=== PATIENT | female | born 1995 | race Two or more races ===

== ENCOUNTER 2018-10-31 00:43 | Observation (INO) | payer MEDICAID ==
[~2018-10-31] VITALS: Ht 160 cm; Wt 77.1 kg
[2018-10-31 01:40] LABS: Urine Bacteria MOD /hpf (None Seen); Urine Blood Negative /uL (Negative); Urine Mucus FEW (None Seen); Urine Specific Gravity 1.025 (1.001-1.035); Urine WBC 49 /hpf (0 - 5)
[2018-10-31 01:42] LABS: Alcohol, Urine < 3.0 mg/dL (0-5); Amphetamine Screen, Urine NEGATIVE (NEGATIVE); Barbiturate Scree,Urine NEGATIVE (NEGATIVE); Benzodiazephine Screen, Urine NEGATIVE (NEGATIVE); Cannabinoid Screen, Urine POSITIVE (NEGATIVE); Cocaine Screen, Urine NEGATIVE (NEGATIVE); Opiate Scree,Urine NEGATIVE (NEGATIVE); Phencyclidine Screen, Urine NEGATIVE (NEGATIVE)
[2018-10-31] MEDS ORDERED: PREN-153 OR (02:08)
== END 2018-10-31 01:37 | disposition home or self-care (01) | DRG 566 ==
LOC: LDRP 00:43
PROVIDERS: ADMIT Specialist; ATTEND Specialist
DX: O26.853 Spotting complicating pregnancy, third trimester (principal); Z3A.38 38 weeks gestation of pregnancy; Z87.891 Personal history of nicotine dependence
CPT/HCPCS: 59025; 80307; 81001; 81002; 87081; G0378

== ENCOUNTER 2018-11-09 00:17 | Observation (INO) | payer MEDICAID ==
[~2018-11-09 00:17] MED LIST: PREN-153 OR
== END 2018-11-09 01:10 | disposition home or self-care (01) | DRG 566 ==
LOC: LDRP 00:17
PROVIDERS: ADMIT Specialist; ATTEND Specialist
DX: O26.853 Spotting complicating pregnancy, third trimester (principal); Z3A.39 39 weeks gestation of pregnancy
CPT/HCPCS: 59025; 81002; G0378

== ENCOUNTER 2018-11-09 03:02 | Observation (INO) | payer MEDICAID ==
[2018-11-09 04:30] LABS: Urine Bacteria FEW /hpf (None Seen); Urine Blood 3+ /uL (Negative); Urine Specific Gravity 1.004 (1.001-1.035); Urine WBC 10 /hpf (0 - 5)
[2018-11-09 05:17] LABS: Alcohol, Urine < 3.0 mg/dL (0-5); Amphetamine Screen, Urine NEGATIVE (NEGATIVE); Barbiturate Scree,Urine NEGATIVE (NEGATIVE); Benzodiazephine Screen, Urine NEGATIVE (NEGATIVE); Cannabinoid Screen, Urine NEGATIVE (NEGATIVE); Cocaine Screen, Urine NEGATIVE (NEGATIVE); Opiate Scree,Urine NEGATIVE (NEGATIVE); Phencyclidine Screen, Urine NEGATIVE (NEGATIVE)
== END 2018-11-09 07:52 | disposition home or self-care (01) | DRG 566 ==
LOC: LDRP 03:02
PROVIDERS: ADMIT Specialist; ATTEND Specialist
DX: O26.853 Spotting complicating pregnancy, third trimester (principal); O26.893 Other specified pregnancy related conditions, third trimester; M54.9 Dorsalgia, unspecified; R10.9 Unspecified abdominal pain; O99.89 Other specified diseases and conditions complicating pregnancy, childbirth and the puerperium; Z3A.39 39 weeks gestation of pregnancy
CPT/HCPCS: 59025; 76815; 80307; 81001; 81002; G0378; 96365; 96366

== ENCOUNTER 2018-11-13 09:00 | Observation (INO) | payer MEDICAID ==
[~2018-11-13] VITALS: Ht 160 cm; Wt 81.6 kg
[2018-11-13 11:00] LABS: Alcohol, Urine < 3.0 mg/dL (0-5); Amphetamine Screen, Urine NEGATIVE (NEGATIVE); Barbiturate Scree,Urine NEGATIVE (NEGATIVE); Benzodiazephine Screen, Urine NEGATIVE (NEGATIVE); Cannabinoid Screen, Urine NEGATIVE (NEGATIVE); Cocaine Screen, Urine NEGATIVE (NEGATIVE); Opiate Scree,Urine NEGATIVE (NEGATIVE); Phencyclidine Screen, Urine NEGATIVE (NEGATIVE)
== END 2018-11-13 11:00 | disposition home or self-care (01) | DRG 566 ==
LOC: LDRP 09:00
PROVIDERS: ADMIT Specialist; ATTEND Specialist
DX: O48.0 Post-term pregnancy (principal); O26.893 Other specified pregnancy related conditions, third trimester; N89.8 Other specified noninflammatory disorders of vagina; Z3A.40 40 weeks gestation of pregnancy; Z87.891 Personal history of nicotine dependence
CPT/HCPCS: 59025; 76818; 80307; 81002; G0378

== ENCOUNTER 2018-11-15 10:13 | Observation (INO) | payer MEDICAID ==
[2018-11-16] MEDS ORDERED: FERR1TAB36 PO (19:05)
[2018-11-16] MEDS ORDERED: PYRI100T51 PO (19:05)
== END 2018-11-15 14:50 | disposition home or self-care (01) | DRG 566 ==
LOC: LDRP 10:13
PROVIDERS: ADMIT Specialist; ATTEND Specialist
DX: O48.0 Post-term pregnancy (principal); Z3A.40 40 weeks gestation of pregnancy; Z87.891 Personal history of nicotine dependence
CPT/HCPCS: 59025; 76805; 76818; 81002; G0378

== ENCOUNTER 2018-11-16 16:40 | Inpatient (IN) | payer MEDICAID | END 2018-11-18 14:00 | disposition home or self-care (01) | LOC: LDRP 16:40 | DX: O80 Encounter for full-term uncomplicated delivery (principal); Z37.0 Single live birth; Z3A.40 40 weeks gestation of pregnancy ==